=== PATIENT | male | born 1955 | race Asian ===

== ENCOUNTER 2021-04-24 14:54 | Emergency (ER) | payer OTHER, MEDICAID ==
[~2021-04-24] VITALS: Ht 162.6 cm; Wt 53.1 kg
[2021-04-24 15:06] VITALS: BP_SYST 127
[2021-04-24] MEDS ORDERED: CLIN300C12 PO (15:24)
[2021-04-24] MEDS ORDERED: IBUP-1971 PO (15:24)
[2021-04-24] MEDS ORDERED: CORTEARS EACH EAR (15:24)
[2021-04-24 15:42] VITALS: BP_SYST 127
== END 2021-04-24 15:42 | disposition home or self-care (01) ==
LOC: SED 14:54
DX: H60.91 Unspecified otitis externa, right ear (principal); H66.91 Otitis media, unspecified, right ear; I10 Essential (primary) hypertension; E11.9 Type 2 diabetes mellitus without complications; Z79.899 Other long term (current) drug therapy
CPT/HCPCS: 99283